=== PATIENT | female | born 1995 | race African-American/Black ===

== ENCOUNTER 2017-08-16 20:23 | Emergency (ER) | payer OTHER, MEDICAID ==
[2017-08-16 20:27] VITALS: BP 130/76; PULSE 96; RESP 16; TEMP 98.4; O2SAT 99
--- NOTE | 2017-08-17 00:04 | PD ---
HPI Chief Complaint: Medical Clearance Time Seen by Provider: 22:23 Travel History International Travel<30 days: No Contact w/Intl Traveler<30days: No Traveled to known affect area: No History of Present Illness HPI 22-year-old black female presents emergency department on a voluntary basis for psychological evaluation. Patient is accompanied by 1 of the counselors [facility] The patient is a student there. The patient states that her friend had advised her to come in to be evaluated. They had contacted the counselor and advised him that she has been acting unusual. She is becoming increasingly paranoid. She has not been herself. She states that this started approximately 1 year ago when she started smoking marijuana. She states that she smoked marijuana a lot more frequently initially but now only does it every couple weeks. She did smoke marijuana this past weekend. She denies any suicidal or homicidal ideation. She had discussed her issues with her parents earlier who advised her to stop smoking. She continues to smoke marijuana. She has not been doing well in school. She has having problems concentrating and doing activities. She denies any fever chills. No chest pain shortness of breath. No nausea vomiting. No abdominal pain or urinary symptoms. States last mental period was approximately 2 days ago. She does not drink alcohol. No tobacco. PFSH Past Medical History Medical History: Denies Significant Hx Immunizations Current: Yes ?: Not LMP: 08/08/2017 Past Surgical History Narrative Surgical umbilical herniorrhaphy Social History Alcohol Use: No Tobacco Use: No Substance Use: Yes (Marijuana) Allergies-Medications (Allergen,Severity, Reaction): Coded Allergies: No Known Allergies (Unverified , 05/10/17) Reported Meds & Prescriptions Reported Meds & Active Scripts Active No Active Prescriptions or Reported Medications Review of Systems General / Constitutional: No: Fever Eyes: No: Visual changes HENT: No: Headaches Cardiovascular: No: Chest Pain or Discomfort Respiratory: No: Shortness of Breath Gastrointestinal: No: Abdominal Pain Genitourinary: No: Dysuria Musculoskeletal: No: Pain Skin: No Rash Neurologic: No: Weakness Psychiatric: Positive: Disorder of Thought, Mood Disorder, Substance Abuse, No : Anxiety, Depression, Suicidal Ideations, Homicidal Ideation Endocrine: No: Polydipsia Hematologic/Lymphatic: No: Easy Bruising Physical Exam Narrative GENERAL: Well-nourished, well-developed patient. SKIN: Warm and dry. HEAD: Normocephalic and atraumatic. EYES: No scleral icterus. No injection or drainage. ENT: No nasal drainage noted. Mucous membranes pink. Airway patent. NECK: Supple, trachea midline. Moves head freely without obvious discomfort. CARDIOVASCULAR: Regular rate and rhythm without murmurs, gallops, or rubs. RESPIRATORY: Breath sounds equal bilaterally. No accessory muscle use. GASTROINTESTINAL: Abdomen soft, non-tender, nondistended. EXTREMITIES: No cyanosis or edema. BACK: Nontender without obvious deformity. No CVA tenderness. NEURO: Patient is alert and oriented. no sensorimotor deficits. Nonfocal. Normal speech. PSYCH: No delusions. No auditory or visual hallucinations. Data Data Last Documented VS Vital Signs Date Time Temp Pulse Resp B/P (MAP) Pulse Ox O2 Delivery O2 Flow Rate FiO2 08/16/17 20:27 98.4 96 16 130/76 (94) 99 Orders Orders Complete Blood Count With Diff (08/16/17 23:50) Comprehensive Metabolic Panel (08/16/17 23:50) Thyroid Stimulating Hormone (08/16/17 23:50) Drug Screen, Random Urine (08/16/17 23:50) Alcohol (Ethanol) (08/16/17 23:50) Ed Discharge Order (08/17/17 00:19) [facility] Medical Decision Making Medical Screen Exam Complete: Yes Emergency Medical Condition: Yes Medical Record Reviewed: Yes Differential Diagnosis MDM: High Differential diagnoses: Schizophrenia, schizoaffective disorder, bipolar, anxiety, depression, adjustment reaction, mood disorder NOS, ODD, depressive disorder NOS, dementia, dementia with agitation, psychosis NOS, substance induced mood disorder, DMDD, Asperger syndrome, infection,electrolyte abnormality, malingering. Narrative Course Mental health screening discussed with the patient. Psychiatric screen ordered. The patient has refused laboratory testing. She does not want to have further evaluations here in the ER. The patient is not a threat to herself or others. I have had this discussion in the presence of the [facility] counselor. They are aware that they will need to follow-up as an outpatient to [facility]. The counselor is aware of the [employer] on [facility]. This medical clearance for psychiatric admission, substance abuse Diagnosis Primary Impression: Medical clearance for psychiatric admission Additional Impression: Substance abuse Referrals: [facility] (Out [facility] day [facility] Patient Instructions: General Instructions Additional Instructions: Rest. Follow-up with [facility] on [address] tomorrow. Return to the ER for any emergencies. Scripts No Active Prescriptions or Reported Meds Disposition: 01 DISCHARGE HOME Condition: Clark Salgado Aug 17, 2017 00:04
== END 2017-08-17 00:33 | disposition home or self-care (01) ==
LOC: NEPD 20:23
DX: F19.10 Other psychoactive substance abuse, uncomplicated (principal); F12.90 Cannabis use, unspecified, uncomplicated
CPT/HCPCS: 99281